=== PATIENT | female | born 1935 | race Caucasian/White ===

== ENCOUNTER → 2018-06-13 13:11 | Outpatient (CLI) | payer MEDICARE, OTHER, SELFPAY | PROVIDERS: Family Provider Family Medicine; PCP Family Medicine; Visit Provider Family Medicine | DX: M81.0 Age-related osteoporosis without current pathological fracture (principal); Z78.0 Asymptomatic menopausal state; E07.9 Disorder of thyroid, unspecified; Z85.3 Personal history of malignant neoplasm of breast; Z85.118 Personal history of other malignant neoplasm of bronchus and lung; Z90.722 Acquired absence of ovaries, bilateral | CPT/HCPCS: 77080 ==

== ENCOUNTER → 2018-08-18 14:24 | Outpatient (CLI) | payer MEDICARE, OTHER, SELFPAY ==
--- NOTE | 2018-08-18 | DI.US.S_ITS ---
PROCEDURE: US ARTERIAL DUPLEX LE BI INDICATIONS: CLAUDICATION BILATERAL/SMOKER TECHNIQUE: Color and pulse Doppler interrogation was performed of both lower extremity arterial systems, with image documentation. COMPARISON: None. FINDINGS: Right lower extremity: Common femoral artery: 50 cm/sec, with monophasic flow. Deep femoral artery: 60 cm/sec, with biphasic flow. Proximal superficial femoral artery: 66 cm/sec, with monophasic flow. Mid superficial femoral artery: 35 cm/sec, with monophasic flow. Distal superficial femoral artery: 20 cm/sec, with monophasic flow. Popliteal artery: 42 cm/sec, with monophasic flow. Posterior tibial artery: 14 cm/sec, with monophasic flow. Anterior tibial artery/dorsalis pedis: 43 cm/sec, with biphasic flow. Costa-scale imaging description: Atherosclerotic irregularity is seen. Left lower extremity: Common femoral artery: 57 cm/sec, with triphasic flow. Deep femoral artery: 44 cm/sec, with biphasic flow. The superficial femoral artery is occluded. Popliteal artery: Reconstitution of flow, with a flow velocity 37 cm/sec, with monophasic flow. Posterior tibial artery: Occluded. Anterior tibial artery/dorsalis pedis: 26 cm/sec, with monophasic flow. Costa-scale imaging description: Atherosclerotic changes are seen. 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 Monophasic flow is seen within the right common femoral artery, which is suggestive of an inflow stenosis. Atherosclerotic changes are seen throughout. Dictated by: Jeff Briseno M.D. on 08/18/2018 at 16:39 Approved by: Jeff Briseno M.D. on 08/18/2018 at 16:42
== END ==
PROVIDERS: PCP Family Medicine; Visit Provider Family Medicine
DX: I70.213 Atherosclerosis of native arteries of extremities with intermittent claudication, bilateral legs (principal); F17.210 Nicotine dependence, cigarettes, uncomplicated
CPT/HCPCS: 93925

== ENCOUNTER 2018-10-13 14:57 | Emergency (ER) | payer MEDICARE, OTHER, SELFPAY ==
[2018-10-13 15:01] VITALS: BP 151/80; PULSE 95; RESP 18; TEMP 36.8; O2SAT 96; BMI 24.2
--- NOTE | 2018-10-13 15:11 | DI.RAD.S_ITS ---
PROCEDURE: XR WRIST RT MIN 3V INDICATIONS: fall onto right hand TECHNIQUE: 4 views of the wrist were acquired. COMPARISON: None. 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 There is chronic appearing collapse of the trapezius. There is a minimally displaced fracture through the distal radius which extends into the joint space. Scaphoid view: The scaphoid is intact. Soft tissues: There is elevation of the pronator fat-pad consistent with joint effusion. IMPRESSION: 1. Minimally displaced intra-articular distal radial fracture. 2. 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 Dictated by: Lizbeth Roberts M.D. on 10/13/2018 at 15:33 Approved by: Lizbeth Roberts M.D. on 10/13/2018 at 15:35
--- NOTE | 2018-10-13 16:58 | DI.CT.S_ITS ---
PROCEDURE: CT HEAD/BRAIN WO CON INDICATIONS: fall, hit head Saturday, positive LOC TECHNIQUE: Noncontrast 4.5 mm thick angled axial sections acquired from the foramen magnum to the vertex, with coronal and sagittal reformats. For radiation dose reduction, the following was used: automated exposure control, adjustment of mA and/or kV according to patient size. COMPARISON: [facility], MR, BRAIN WITH AND WITHOUT CONTRAS, 04/30/2007, 13:17. FINDINGS: Image quality: Excellent. CSF spaces: Basal cisterns are patent. No extra-axial fluid collections. The ventricles are symmetric in size and shape. Brain: No intracranial bleeds or masses. There is cerebral volume loss for age, with resultant ventricular and sulcal prominence. There are periventricular and deep white matter chronic small vessel ischemic changes. There is intracranial internal carotid artery atherosclerosis. Skull and face: Calvarium and visualized facial bones appear intact, without suspicious lesions. Sinuses: Mucosal thickening is seen within the inferior maxillary sinuses. Visualized sinuses and mastoids are otherwise clear. IMPRESSION: Unremarkable intracranial study for age. No acute intracranial hemorrhage. Note is made of age-appropriate brain parenchymal volume loss and chronic small vessel ischemic changes. Dictated by: Jeff Briseno M.D. on 10/13/2018 at 16:18 Approved by: Jeff Briseno M.D. on 10/13/2018 at 16:20
--- NOTE | 2018-10-13 17:01 | ED.TRAUMA ---
HPI - Trauma General Chief Complaint: Extremity Injury, Upper Stated Complaint: RIGHT ARM INJURY SWELLING Time Seen by Provider: 10/13/18 16:36 Source: patient and other (friends) Mode of arrival: ambulatory Limitations: no limitations History of Present Illness HPI narrative: This an 83-year-old female comes in with complaint of right wrist pain. Patient states that she fell on Saturday she states she was in her garage she got tangled up in cords while she was trying to vacuum out her car and fell. Um she has had continued pain Um as well as significant bruising on that arm. She denies any numbness, tingling, weakness. She states she had trouble sleeping last night. She was in touch with her physician who called in a prescription for Tylenol No. 3 but she was unable to pick it up over the weekend. She lives alone and has been able to handle her home activities without major intervention. She is accompanied by 2 good friends from [place] that help her with daily activities as needed. Patient does not recall her fall, she is unsure how long she had a loss of consciousness. She cannot even tell me if she remembers falling. She denies any neck pain, she denies any back pain. She denies any chest pain or shortness of breath. No nausea, no vomiting no dizziness or similar symptoms. She has some chronic urinary incontinence. She is not having any fecal incontinence. She denies any other trauma or injuries. She denies taking any aspirin or other blood thinners daily. Related Data Home Medications Medication Instructions Recorded Confirmed allopurinol 100 mg PO BID #0 04/14/13 10/13/18 atenolol 50 mg PO DAILY #0 04/14/13 10/13/18 cetirizine 10 mg PO PRN PRN #0 04/14/13 10/13/18 furosemide 40 mg PO DAILY #0 04/14/13 10/13/18 simvastatin [Zocor] 40 mg PO BEDTIME #0 04/14/13 10/13/18 telmisartan [Micardis] 40 mg PO DAILY #0 04/14/13 10/13/18 acetaminophen-codeine 1 tab PO Q6H PRN 10/13/18 10/13/18 alendronate 70 mg PO QWEEK 10/13/18 10/13/18 diazepam 5 mg PO BID 10/13/18 10/13/18 levothyroxine [Synthroid] 112 mcg PO DAILY 10/13/18 10/13/18 Allergies Allergy/AdvReac Type Severity Reaction Status Date / Time aspirin Allergy Unknown Verified 10/13/18 15:09 citalopram [From CELEXA] Allergy Unknown UNK Verified 10/13/18 15:09 influenza virus vaccine, Allergy Unknown Verified 10/13/18 15:09 specific [influenza virus vacc,specific] meperidine Allergy Unknown Verified 10/13/18 15:09 penicillin G Allergy Unknown Verified 10/13/18 15:09 Sulfa (Sulfonamide Allergy Unknown Verified 10/13/18 15:09 Antibiotics) Cephalosporins AdvReac Intermediate stomach Verified 10/13/18 15:09 [CEPHALOSPORINS] pains doxycycline [DOXYCYCLINE] AdvReac Intermediate stomach Verified 10/13/18 15:09 pains Influenza Virus Vaccines AdvReac Intermediate nausea, Verified 10/13/18 15:09 [INFLUENZA VIRUS VACCINES] vomiting fluticasone [From FLONASE] AdvReac Mild sores in Verified 10/13/18 15:09 nose ZOMAX Allergy Unknown Uncoded 01/08/18 12:03 Review of Systems Review of Systems ROS Unobtainable: All systems reviewed & are unremarkable except as noted in HPI and below Constitutional Denies chills, Denies fever(s), Denies frequent falls, Denies headache(s), Denies lethargy, Denies weakness and Reports other (Loss of conscious) Eyes Denies blurry vision ENT Ears, Nose, Mouth, and Throat: Denies vertigo, Denies dizziness, Denies headache(s), Denies neck pain and Denies other (Abrasions, bruises or scalp injury) Cardiovascular Denies chest pain, Denies diaphoresis, Reports syncope (vs. LOC from fall? ), Denies edema, Denies irregular heart rhythm, Denies lightheadedness, Denies palpitations, Denies dyspnea, Denies dyspnea on exertion and Denies orthopnea Respiratory Denies change in phlegm color, Denies chest congestion, Denies cough, Denies pain on inspiration, Denies dyspnea, Denies dyspnea on exertion, Denies stridor and Denies wheezing Gastrointestinal Gastrointestinal: Denies abdominal pain, Denies change in bowel habits, Denies diarrhea, Denies nausea and Denies vomiting Genitourinary Reports urinary incontinence (chronic) Musculoskeletal Reports as per HPI, Denies abnormal gait, Denies back pain, Reports myalgias (improving), Denies deformity, Reports arthralgias (right wrist), Reports joint swelling, Reports limited range of motion, Denies muscle weakness, Denies neck pain, Denies numbness and Denies tingling Integumentary/Breasts Reports unusual bruising (right forearm) Neurologic Denies abnormal movements, Denies abnormal speech, Denies abnormal gait, Denies confusion, Denies vertigo, Denies dizziness, Reports syncope (vs. LOC from fall? ), Denies frequent falls, Denies headache(s), Denies focal weakness, Denies numbness, Denies sensory deficit, Denies tingling and Denies weakness Psychiatric Denies confusion Endocrine Denies palpitations Allergic/Immunologic Denies wheezing [facility] Medical History Dyslipidemia (Acute) Hypertension (Acute) Hypothyroid (Acute) Social History Smoking Status: Current every day smoker Exam Narrative Exam Narrative: GEN: Patient appears in mild distress. HEAD: No evidence of trauma, no raccoon/Hightower sign. NECK: Nontender, painless range of motion, trachea midline 9- Nexus criteria, there is no midline tenderness, distracting injury, altered mental status, neuro deficit, recent EtOH. EYES: PERRLA, EOMI ENT: External inspection normal, trachea is midline, TM's are normal no hemotypanum, Nares are clear, no septal hematoma, no dental or oral injury, airway is normal and with normal occlusion, No bony tenderness RESP: Chest is nontender and has symmetric movement, no ecchymosis, breath sounds are normal no crackles, wheezes or rales CVS: Heart sounds are normal, no murmur noted, No JVD. ABG/GI: Nontender, soft, normal bowel sounds, no distention, no organomegaly, pelvic rock is negative NEURO: Oriented AOx3, neuro is grossly intact, sensation and motor is normal all 4 extremities moving, cranial nerves II through XII are intact, GCS is 15 PSYCH: Normal mood and affect SKIN: Intact, warm and dry, no crepitus and without decubitus. Patient has bruising of the distal forearm that appears to be extending towards the elbow about long-term down the forearm. No hematoma noted. There is no wounds or lacerations BACK: No CVA tenderness, no vertebral tenderness, no step-off's, no crepitus EXT: Atraumatic, patient's right wrist is tender to palpation, she has full range of motion of her fingers. She does have an injury to her left distal thumb although the nail appears to be intact at this time there is cap refill less than 2 sec in all 5 fingers. She has 2+ radial pulse. hips are nontender, no pedal edema, normal color and temperature, normal range of motion of extremities with normal tendon exam, 2+ pulses in all four extremities Initial Vital Signs Initial Vital Signs: Vital Signs Temperature 98.2 F 10/13/18 15:01 Pulse Rate 95 H 10/13/18 15:01 Respiratory Rate 18 10/13/18 15:01 Blood Pressure 151/80 H 10/13/18 15:01 Pulse Oximetry 96 10/13/18 15:01 Course Orders Ordered: ED Orders 10/13/18 15:11 XR wrist RT min 3V Stat 10/13/18 16:58 CT head/brain wo con Stat Vital Signs - 8 hr 10/13/18 15:01 10/13/18 17:26 Temperature 98.2 F Pulse Rate 95 H 90 Respiratory Rate 18 17 Blood Pressure 151/80 H Blood Pressure [Left Arm] 128/81 Pulse Oximetry 96 97 MDM - Trauma Imaging Data wrist xray: Radiologist's impression: [address] [address] XRay Report Signed Patient: Pau Bautista MR#: [id number] : 1935 Acct:[id number] Age/Sex: 83 / F Date of Service: 10/13/18 Loc: ED Accession Number: [id number] Procedure: XR wrist RT min 3V Ordering Provider: Janell Mcclure D.O. PROCEDURE: XR WRIST RT MIN 3V INDICATIONS: fall onto right hand TECHNIQUE: 4 views of the wrist were acquired. COMPARISON: None. 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 There is chronic appearing collapse of the trapezius. There is a minimally displaced fracture through the distal radius which extends into the joint space. Scaphoid view: The scaphoid is intact. Soft tissues: There is elevation of the pronator fat-pad consistent with joint effusion. IMPRESSION: 1. Minimally displaced intra-articular distal radial fracture. 2. 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 Dictated by: Lizbeth Roberts M.D. on 10/13/2018 at 15:33 Approved by: Lizbeth Roberts M.D. on 10/13/2018 at 15:35 CT scan - head: Radiologist's impression: [address] [address] [address] Scan Report Signed Patient: Pau Bautista MR#: [id number] : 1935 Acct:[id number] Age/Sex: 83 / F Date of Service: 10/13/18 Loc: ED Accession Number: [id number] Procedure: CT head/brain wo con Ordering Provider: Janell Mcclure D.O. PROCEDURE: CT HEAD/BRAIN WO CON INDICATIONS: fall, hit head Saturday, positive LOC TECHNIQUE: Noncontrast 4.5 mm thick angled axial sections acquired from the foramen magnum to the vertex, with coronal and sagittal reformats. For radiation dose reduction, the following was used: automated exposure control, adjustment of mA and/or kV according to patient size. COMPARISON: [facility], , BRAIN WITH AND WITHOUT CONTRAS, 04/30/2007, 13:17. FINDINGS: Image quality: Excellent. CSF spaces: Basal cisterns are patent. No extra-axial fluid collections. The ventricles are symmetric in size and shape. Brain: No intracranial bleeds or masses. There is cerebral volume loss for age, with resultant ventricular and sulcal prominence. There are periventricular and deep white matter chronic small vessel ischemic changes. There is intracranial internal carotid artery atherosclerosis. Skull and face: Calvarium and visualized facial bones appear intact, without suspicious lesions. Sinuses: Mucosal thickening is seen within the inferior maxillary sinuses. Visualized sinuses and mastoids are otherwise clear. IMPRESSION: Unremarkable intracranial study for age. No acute intracranial hemorrhage. Note is made of age-appropriate brain parenchymal volume loss and chronic small vessel ischemic changes. Dictated by: Jeff Briseno M.D. on 10/13/2018 at 16:18 Approved by: Jeff Briseno M.D. on 10/13/2018 at 16:20 [facility] Narrative Medical decision making narrative: Patient's left wrist shows signs of fracture. This was discussed with Dr. Broussard who recommends CT of the wrist if patient is willing to do it today. I had quite a bit of difficulty convincing her to get a head CT even with her fall on Saturday with either a loss of consciousness versus syncope or other cause. Patient had a period of time that was missing that she is unable to account for. So patient deferred CT of her wrist today but we did discuss that she can get it out as an outpatient through Dr. Broussard. She also deferred any further workup such as cardiac enzymes, low other lab work, EKG or chest x-ray. We did discuss that I cannot rule out other causes for her fall. Although it does sound consistent that it was a fall. Her friends were at bedside with her states that she has been and has not had any other changes to her mentation. Patient appears alert or and competent and able to make decisions not do further workup. She is 4 days from her initial injury. We were able to convince her to do a head CT which did not show any acute changes. Patient is placed in a sugar-tong splint, checked she appears neurovascularly intact afterwards. We discussed at length reasons to return, need for follow-up and further evaluation. We also discussed she can return here at any time if she is having difficulties or is unsure what to do. Discharge Plan Departure Patient Disposition: Home Clinical Impression: Distal radial fracture Discharge Date/Time: 10/13/18 18:19 Interventions: ED Discharge Assessment Last Done: 10/13/18 18:19 Instructions: DI for Wrist Fracture Activity Restrictions/Additional Instructions: Follow-up with Dr. Broussard with Orthopedic surgery in the next 3-5 days for recheck. Call for an appointment. Your Head CT does not show any bleed, we did not do it the rest of the evaluation including EKG, chest x-ray or lab work so I cannot rule out any other causes such as cardiac, pulmonary, blood clots or other causes that may have caused your symptoms. You may take pain medication as prescribed this medication can make you sleepy do not drive, perform hazards activities or make any major decisions while taking it. Splint Care: Keep splint clean and dry. Elevated affected body part to decrease swelling. OK to use ice pack on the affected body part. Use for 15-20 minutes each time, for 5-6x per day. If you develop worsening pain, numbness, tingling, discoloration of the affected body part, loosen the splint by loosening the YAZMIN wrap, and either see your doctor for an urgent re-assessment, or return to the Emergency Department. Return to the Emergency Department for any new or worsening symptoms, sudden severe headaches, difficulty with speech, new weakness, numbness, altered mental status or confusion, persistent vomiting, new chest pain and/or shortness of breath. Prescriptions: No Action furosemide 40 MG tablet 40 mg PO DAILY Qty: 0 RF: 0 cetirizine 10 MG tablet 10 mg PO PRN PRN (Reason: Allergy Symptoms) Qty: 0 RF: 0 allopurinol 100 MG tablet 100 mg PO BID Qty: 0 RF: 0 simvastatin [Zocor] 40 MG tablet 40 mg PO BEDTIME Qty: 0 RF: 0 telmisartan [Micardis] 40 MG tablet 40 mg PO DAILY Qty: 0 RF: 0 atenolol 50 MG tablet 50 mg PO DAILY Qty: 0 RF: 0 alendronate 70 mg tablet 70 mg PO QWEEK RF: 0 acetaminophen-codeine 300-30 mg tablet 1 tab PO Q6H PRN (Reason: pain) RF: 0 diazepam 5 mg tablet 5 mg PO BID RF: 0 levothyroxine [Synthroid] 112 mcg tablet 112 mcg PO DAILY RF: 0 Referrals: Chinyere Hill DO [Primary Care Provider] - Dana Broussard MD [Physician] -
--- NOTE | 2018-10-13 17:06 | ED_ITS ---
HPI - Trauma General Chief Complaint: Extremity Injury, Upper Stated Complaint: RIGHT ARM INJURY SWELLING Time Seen by Provider: 10/13/18 16:36 Source: patient and other (friends) Mode of arrival: ambulatory Limitations: no limitations History of Present Illness HPI narrative: This an 83-year-old female comes in with complaint of right wrist pain. Patient states that she fell on Saturday she states she was in her garage she got tangled up in cords while she was trying to vacuum out her car and fell. Um she has had continued pain Um as well as significant bruising on that arm. She denies any numbness, tingling, weakness. She states she had trouble sleeping last night. She was in touch with her physician who called in a prescription for Tylenol No. 3 but she was unable to pick it up over the weekend. She lives alone and has been able to handle her home activities without major intervention. She is accompanied by 2 good friends from [place] that help her with daily activities as needed. Patient does not recall her fall, she is unsure how long she had a loss of consciousness. She cannot even tell me if she remembers falling. She denies any neck pain, she denies any back pain. She denies any chest pain or shortness of breath. No nausea, no vomiting no dizziness or similar symptoms. She has some chronic urinary incontinence. She is not having any fecal incontinence. She denies any other trauma or injuries. She denies taking any aspirin or other blood thinners daily. Related Data Home Medications Medication Instructions Recorded Confirmed allopurinol 100 mg PO BID #0 04/14/13 10/13/18 atenolol 50 mg PO DAILY #0 04/14/13 10/13/18 cetirizine 10 mg PO PRN PRN #0 04/14/13 10/13/18 furosemide 40 mg PO DAILY #0 04/14/13 10/13/18 simvastatin [Zocor] 40 mg PO BEDTIME #0 04/14/13 10/13/18 telmisartan [Micardis] 40 mg PO DAILY #0 04/14/13 10/13/18 acetaminophen-codeine 1 tab PO Q6H PRN 10/13/18 10/13/18 alendronate 70 mg PO QWEEK 10/13/18 10/13/18 diazepam 5 mg PO BID 10/13/18 10/13/18 levothyroxine [Synthroid] 112 mcg PO DAILY 10/13/18 10/13/18 Allergies Allergy/AdvReac Type Severity Reaction Status Date / Time aspirin Allergy Unknown Verified 10/13/18 15:09 citalopram [From CELEXA] Allergy Unknown UNK Verified 10/13/18 15:09 influenza virus vaccine, Allergy Unknown Verified 10/13/18 15:09 specific [influenza virus vacc,specific] meperidine Allergy Unknown Verified 10/13/18 15:09 penicillin G Allergy Unknown Verified 10/13/18 15:09 Sulfa (Sulfonamide Allergy Unknown Verified 10/13/18 15:09 Antibiotics) Cephalosporins AdvReac Intermediate stomach Verified 10/13/18 15:09 [CEPHALOSPORINS] pains doxycycline [DOXYCYCLINE] AdvReac Intermediate stomach Verified 10/13/18 15:09 pains Influenza Virus Vaccines AdvReac Intermediate nausea, Verified 10/13/18 15:09 [INFLUENZA VIRUS VACCINES] vomiting fluticasone [From FLONASE] AdvReac Mild sores in Verified 10/13/18 15:09 nose ZOMAX Allergy Unknown Uncoded 01/08/18 12:03 Review of Systems Review of Systems ROS Unobtainable: All systems reviewed & are unremarkable except as noted in HPI and below Constitutional Denies chills, Denies fever(s), Denies frequent falls, Denies headache(s), Denies lethargy, Denies weakness and Reports other (Loss of conscious) Eyes Denies blurry vision ENT Ears, Nose, Mouth, and Throat: Denies vertigo, Denies dizziness, Denies headache (s), Denies neck pain and Denies other (Abrasions, bruises or scalp injury) Cardiovascular Denies chest pain, Denies diaphoresis, Reports syncope (vs. LOC from fall? ), Denies edema, Denies irregular heart rhythm, Denies lightheadedness, Denies palpitations, Denies dyspnea, Denies dyspnea on exertion and Denies orthopnea Respiratory Denies change in phlegm color, Denies chest congestion, Denies cough, Denies pain on inspiration, Denies dyspnea, Denies dyspnea on exertion, Denies stridor and Denies wheezing Gastrointestinal Gastrointestinal: Denies abdominal pain, Denies change in bowel habits, Denies diarrhea, Denies nausea and Denies vomiting Genitourinary Reports urinary incontinence (chronic) Musculoskeletal Reports as per HPI, Denies abnormal gait, Denies back pain, Reports myalgias ( improving), Denies deformity, Reports arthralgias (right wrist), Reports joint swelling, Reports limited range of motion, Denies muscle weakness, Denies neck pain, Denies numbness and Denies tingling Integumentary/Breasts Reports unusual bruising (right forearm) Neurologic Denies abnormal movements, Denies abnormal speech, Denies abnormal gait, Denies confusion, Denies vertigo, Denies dizziness, Reports syncope (vs. LOC from fall ? ), Denies frequent falls, Denies headache(s), Denies focal weakness, Denies numbness, Denies sensory deficit, Denies tingling and Denies weakness Psychiatric Denies confusion Endocrine Denies palpitations Allergic/Immunologic Denies wheezing [facility] Medical History Dyslipidemia (Acute) Hypertension (Acute) Hypothyroid (Acute) Social History Smoking Status: Current every day smoker Exam Narrative Exam Narrative: GEN: Patient appears in mild distress. HEAD: No evidence of trauma, no raccoon/Hightower sign. NECK: Nontender, painless range of motion, trachea midline 9- Nexus criteria, there is no midline tenderness, distracting injury, altered mental status, neuro deficit, recent EtOH. EYES: PERRLA, EOMI ENT: External inspection normal, trachea is midline, TM's are normal no hemotypanum, Nares are clear, no septal hematoma, no dental or oral injury, airway is normal and with normal occlusion, No bony tenderness RESP: Chest is nontender and has symmetric movement, no ecchymosis, breath sounds are normal no crackles, wheezes or rales CVS: Heart sounds are normal, no murmur noted, No JVD. ABG/GI: Nontender, soft, normal bowel sounds, no distention, no organomegaly, pelvic rock is negative NEURO: Oriented AOx3, neuro is grossly intact, sensation and motor is normal all 4 extremities moving, cranial nerves II through XII are intact, GCS is 15 PSYCH: Normal mood and affect SKIN: Intact, warm and dry, no crepitus and without decubitus. Patient has bruising of the distal forearm that appears to be extending towards the elbow about residential down the forearm. No hematoma noted. There is no wounds or lacerations BACK: No CVA tenderness, no vertebral tenderness, no step-off's, no crepitus EXT: Atraumatic, patient's right wrist is tender to palpation, she has full range of motion of her fingers. She does have an injury to her left distal thumb although the nail appears to be intact at this time there is cap refill less than 2 sec in all 5 fingers. She has 2+ radial pulse. hips are nontender , no pedal edema, normal color and temperature, normal range of motion of extremities with normal tendon exam, 2+ pulses in all four extremities Initial Vital Signs Initial Vital Signs: Vital Signs Temperature 98.2 F 10/13/18 15:01 Pulse Rate 95 H 10/13/18 15:01 Respiratory Rate 18 10/13/18 15:01 Blood Pressure 151/80 H 10/13/18 15:01 Pulse Oximetry 96 10/13/18 15:01 Course Orders Ordered: ED Orders 10/13/18 15:11 XR wrist RT min 3V Stat 10/13/18 16:58 CT head/brain wo con Stat Vital Signs - 8 hr 10/13/18 15:01 10/13/18 17:26 Temperature 98.2 F Pulse Rate 95 H 90 Respiratory Rate 18 17 Blood Pressure 151/80 H Blood Pressure [Left Arm] 128/81 Pulse Oximetry 96 97 MDM - Trauma Imaging Data wrist xray: Radiologist's impression: [address] [address] XRay Report Signed Patient: Pau Bautista MR#: [id number] : 1935 Acct:[id number] Age/Sex: 83 / F Date of Service: 10/13/18 Loc: ED Accession Number: [id number] Procedure: XR wrist RT min 3V Ordering Provider: Janell Mcclure D.O. PROCEDURE: XR WRIST RT MIN 3V INDICATIONS: fall onto right hand TECHNIQUE: 4 views of the wrist were acquired. COMPARISON: None. 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 There is chronic appearing collapse of the trapezius. There is a minimally displaced fracture through the distal radius which extends into the joint space. Scaphoid view: The scaphoid is intact. Soft tissues: There is elevation of the pronator fat-pad consistent with joint effusion. IMPRESSION: 1. Minimally displaced intra-articular distal radial fracture. 2. 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 Dictated by: Lizbeth Roberts M.D. on 10/13/2018 at 15:33 Approved by: Lizbeth Roberts M.D. on 10/13/2018 at 15:35 CT scan - head: Radiologist's impression: [address] [address] [address] Scan Report Signed Patient: Pau Bautista MR#: [id number] : 1935 Acct:[id number] Age/Sex: 83 / F Date of Service: 10/13/18 Loc: ED Accession Number: [id number] Procedure: CT head/brain wo con Ordering Provider: Janell Mcclure D.O. PROCEDURE: CT HEAD/BRAIN WO CON INDICATIONS: fall, hit head Saturday, positive LOC TECHNIQUE: Noncontrast 4.5 mm thick angled axial sections acquired from the foramen magnum to the vertex, with coronal and sagittal reformats. For radiation dose reduction, the following was used: automated exposure control, adjustment of mA and/or kV according to patient size. COMPARISON: [facility], , BRAIN WITH AND WITHOUT CONTRAS, 04/30/2007, 13: 17. FINDINGS: Image quality: Excellent. CSF spaces: Basal cisterns are patent. No extra-axial fluid collections. The ventricles are symmetric in size and shape. Brain: No intracranial bleeds or masses. There is cerebral volume loss for age , with resultant ventricular and sulcal prominence. There are periventricular and deep white matter chronic small vessel ischemic changes. There is intracranial internal carotid artery atherosclerosis. Skull and face: Calvarium and visualized facial bones appear intact, without suspicious lesions. Sinuses: Mucosal thickening is seen within the inferior maxillary sinuses. Visualized sinuses and mastoids are otherwise clear. IMPRESSION: Unremarkable intracranial study for age. No acute intracranial hemorrhage. Note is made of age-appropriate brain parenchymal volume loss and chronic small vessel ischemic changes. Dictated by: Jeff Briseno M.D. on 10/13/2018 at 16:18 Approved by: Jeff Briseno M.D. on 10/13/2018 at 16:20 [facility] Narrative Medical decision making narrative: Patient's left wrist shows signs of fracture. This was discussed with Dr. Broussard who recommends CT of the wrist if patient is willing to do it today. I had quite a bit of difficulty convincing her to get a head CT even with her fall on Saturday with either a loss of consciousness versus syncope or other cause. Patient had a period of time that was missing that she is unable to account for. So patient deferred CT of her wrist today but we did discuss that she can get it out as an outpatient through Dr. Broussard. She also deferred any further workup such as cardiac enzymes, low other lab work, EKG or chest x-ray. We did discuss that I cannot rule out other causes for her fall. Although it does sound consistent that it was a fall. Her friends were at bedside with her states that she has been and has not had any other changes to her mentation. Patient appears alert or and competent and able to make decisions not do further workup. She is 4 days from her initial injury. We were able to convince her to do a head CT which did not show any acute changes. Patient is placed in a sugar-tong splint, checked she appears neurovascularly intact afterwards. We discussed at length reasons to return, need for follow-up and further evaluation. We also discussed she can return here at any time if she is having difficulties or is unsure what to do. Discharge Plan Departure Patient Disposition: Home Clinical Impression: Distal radial fracture Discharge Date/Time: 10/13/18 18:19 Interventions: ED Discharge Assessment Last Done: 10/13/18 18:19 Instructions: DI for Wrist Fracture Activity Restrictions/Additional Instructions: Follow-up with Dr. Broussard with Orthopedic surgery in the next 3-5 days for recheck. Call for an appointment. Your Head CT does not show any bleed, we did not do it the rest of the evaluation including EKG, chest x-ray or lab work so I cannot rule out any other causes such as cardiac, pulmonary, blood clots or other causes that may have caused your symptoms. You may take pain medication as prescribed this medication can make you sleepy do not drive, perform hazards activities or make any major decisions while taking it. Splint Care: Keep splint clean and dry. Elevated affected body part to decrease swelling. OK to use ice pack on the affected body part. Use for 15-20 minutes each time, for 5-6x per day. If you develop worsening pain, numbness, tingling, discoloration of the affected body part, loosen the splint by loosening the YAZMIN wrap, and either see your doctor for an urgent re-assessment, or return to the Emergency Department. Return to the Emergency Department for any new or worsening symptoms, sudden severe headaches, difficulty with speech, new weakness, numbness, altered mental status or confusion, persistent vomiting, new chest pain and/or shortness of breath. Prescriptions: No Action furosemide 40 MG tablet 40 mg PO DAILY Qty: 0 RF: 0 cetirizine 10 MG tablet 10 mg PO PRN PRN (Reason: Allergy Symptoms) Qty: 0 RF: 0 allopurinol 100 MG tablet 100 mg PO BID Qty: 0 RF: 0 simvastatin [Zocor] 40 MG tablet 40 mg PO BEDTIME Qty: 0 RF: 0 telmisartan [Micardis] 40 MG tablet 40 mg PO DAILY Qty: 0 RF: 0 atenolol 50 MG tablet 50 mg PO DAILY Qty: 0 RF: 0 alendronate 70 mg tablet 70 mg PO QWEEK RF: 0 acetaminophen-codeine 300-30 mg tablet 1 tab PO Q6H PRN (Reason: pain) RF: 0 diazepam 5 mg tablet 5 mg PO BID RF: 0 levothyroxine [Synthroid] 112 mcg tablet 112 mcg PO DAILY RF: 0 Referrals: Chinyere Hill DO [Primary Care Provider] - Dana Broussard MD [Physician] -
[2018-10-13 17:26] VITALS: BP 128/81; PULSE 90; RESP 17; O2SAT 97
== END 2018-10-13 18:19 | disposition home or self-care (01) ==
PROVIDERS: Emergency Provider Emergency Medicine; PCP Family Medicine
DX: R55 Syncope and collapse (principal); S52.509A Unspecified fracture of the lower end of unspecified radius, initial encounter for closed fracture; S06.9X9A Unspecified intracranial injury with loss of consciousness of unspecified duration, initial encounter; W19.XXXA Unspecified fall, initial encounter
CPT/HCPCS: 29105; 70450; 73110; 99283

== ENCOUNTER → 2019-02-05 10:38 | Outpatient (CLI) | payer MEDICARE, OTHER, SELFPAY ==
[2019-02-05 12:08] LABS: Add Manual Diff / Slide Review NO; Basophils Absolute Auto 100 /uL (0-100); Basophils Percent Auto 0.8 % (0-2); Eosinophils Absolute Auto 100 /uL (0-450); Eosinophils Percent Auto 1.5 % (2-4); Hematocrit 42.2 % (36-46); Hemoglobin 13.6 g/dL (12.0-16.0); Lymphocytes Absolute Auto 1300 /uL (1100-4500); Lymphocytes Percent Auto 20.4 % (25-40); Mean Corpuscular HGB Conc 32.1 % (30-36); Mean Corpuscular Hemoglobin 30.3 PG (26-34); Mean Corpuscular Volume 94.3 fL (80-100); Monocytes Absolute Auto 500 /uL (0-900); Neutrophils Absolute Auto 4600 /uL (1500-7000); Neutrophils Percent Auto 70.3 % (50-75); Platelet Count 158 X10^3/uL (150-400); Red Blood Cell Count 4.47 X10^6/uL (4.0-5.2); Red Cell Distribution Width 15.8 % (11.6-14.8); White Blood Cell Count 6.5 X10^3/uL (4.5-11.0)
[2019-02-05 12:40] LABS: Alanine Aminotransferase 9 IU/L (9-52); Albumin 4.1 g/dL (3.5-5.0); Albumin Globulin Ratio 1.3 (1.0-2.8); Alkaline Phosphatase 81 U/L (38-126); Aspartate Aminotransferase 18 IU/L (14-36); BUN Creatinine Ratio 26.4 (6-22); Bilirubin Total 0.5 mg/dL (0.2-1.3); Blood Urea Nitrogen 29 mg/dL (7-17); Calcium 10.5 mg/dL (8.4-10.2); Carbon Dioxide 26 mmol/L (22-32); Chloride 104 mmol/L (98-107); Cholesterol 167 mg/dL (140-199); Estimated Glomerular Filt Rate 47.4 mL/min (>60); Globulin 3.2 g/dL (1.7-4.1); Glucose 91 mg/dL (80-110); HDL Cholesterol 46 mg/dL (40-60); HEMOLYSIS < 15 (0-50); LDL Cholesterol Calculated 73 mg/dL (<100); Potassium 4.9 mmol/L (3.4-5.1); Sodium 139 mmol/L (137-145); Total Protein 7.3 g/dL (6.3-8.2); Triglycerides 238 mg/dL (35-150)
[2019-02-05 12:57] LABS: Free T3, Triiodothyronine Free 3.23 pg/mL (2.77-5.27); Free T4, Direct Thyroxine 1.75 ng/dL (0.78-2.19)
== END ==
PROVIDERS: PCP Family Medicine; Visit Provider Family Medicine
DX: E11.9 Type 2 diabetes mellitus without complications (principal); E89.0 Postprocedural hypothyroidism; R31.9 Hematuria, unspecified; Z85.528 Personal history of other malignant neoplasm of kidney
CPT/HCPCS: 36415; 80053; 80061; 83036; 84439; 84481; 85025

== ENCOUNTER → 2019-02-10 13:05 | Outpatient (CLI) | payer MEDICARE, OTHER, SELFPAY ==
--- NOTE | 2019-02-10 | DI.CT.S_ITS ---
PROCEDURE: CT ABDOMEN PELVIS WO/W CON INDICATIONS: Hematuria, unspecified TECHNIQUE: Optional 5 mm thick noncontrast images acquired from the diaphragm to the symphysis pubis. After the administration of intravenous contrast, 5 mm thick images acquired from the diaphragm to the symphysis pubis after a 10-minute delay. 2 mm thick coronal and sagittal reformats were then performed of the kidneys and ureters. For radiation dose reduction, the following was used: automated exposure control, adjustment of mA and/or kV according to patient size. COMPARISON: [facility], CT, CHEST/ABDOMEN WITHOUT CONTRAST, 12/18/2017, 12:30. FINDINGS: Image quality: Excellent. Lung bases: Sub-5 mm nodules in the left lung base and medial right lower lobe are unchanged since 11/28/17 in keeping with chronic granulomatous disease.. Urinary system: Slight enlargement of the inferior aspect of the right staghorn calculus since prior study otherwise grossly unchanged. Bilateral renal hilar vascular calcifications. bilateral sub-5 mm renal calculi are again noted. No hydronephrosis. No perinephric stranding. Multiple renal cysts are again redemonstrated, although hyperdense appearance of exophytic left renal lesion, with no interval change in size since the prior study (image 28 series 2), measuring 3.1 x 2.9 cm. Additional smaller hyperdense appearance of exophytic lesions in the left kidney on image 37 series 2, image 33 series 2 also unchanged. The ureters appear nondilated. Bladder grossly unremarkable. No bladder calculi seen. Other solid organs: Liver is normal in size and enhancement. Gallbladder negative. Intra-and extrahepatic bile ducts are again prominent although grossly unchanged appearance. Pancreas enhances normally. Spleen is normal in size and enhancement. Stable-appearing presumed left adrenal adenoma. Peritoneum and bowel: No evidence of bowel obstruction. No free fluid or free air. The rectum is unremarkable. Appendix is not clearly identified however no suspicious pericecal inflammatory changes are identified Nodes and vessels: No retroperitoneal or mesenteric adenopathy by size criteria. Scattered vascular calcifications seen in the aorta. Minimal 2.8 cm ectasia of the infrarenal abdominal aorta. Abdominal wall: No ventral hernias. Pelvis: No pathologic free pelvic fluid. No inguinal hernias or adenopathy. Bones: Diffuse osteopenia, multilevel spondylosis. No compression fracture seen. IMPRESSION: Redemonstration of bilateral nephrolithiasis, including large right staghorn calculus. Numerous bilateral renal cysts, some of which on the left demonstrating hyperdense appearance. No gross interval change. Continued long-term surveillance with ultrasound or CT recommended. No evidence of urinary obstruction. Mild aneurysmal dilatation of the infrarenal abdominal aorta, which could be monitored with ultrasound as clinically warranted. Dictated by: Oliver Pardo M.D. on 02/10/2019 at 14:44 Approved by: Oliver Pardo M.D. on 02/10/2019 at 14:56
== END ==
PROVIDERS: PCP Family Medicine; Visit Provider Family Medicine
DX: R31.9 Hematuria, unspecified (principal); N20.0 Calculus of kidney; N28.1 Cyst of kidney, acquired; I71.4 Abdominal aortic aneurysm, without rupture
CPT/HCPCS: 74178; Q9967

== ENCOUNTER → 2019-08-26 12:34 | Outpatient (CLI) | payer MEDICARE, OTHER, SELFPAY ==
--- NOTE | 2019-08-26 | DI.US.S_ITS ---
PROCEDURE: US ABD AORTA ANEURYSM SCREEN INDICATIONS: AAA SCREEN TECHNIQUE: Real time scanning was performed of the aorta and iliac arteries, with image documentation. COMPARISON: None. FINDINGS: Aorta: Proximal aortic diameter measures 2.3 cm. Mid-aorta measures 2.3 cm. Distal aortic diameter is mildly aneurysmal at 2.8 x 3.0 cm in maximal axial dimension and having a fusiform craniocaudad length of 4.0 cm. Iliac arteries: Right common iliac artery measures 0.9 cm. Left common iliac artery measures 0.9 cm. IMPRESSION: Distal abdominal aortic mild aneurysmal dilatation, no sign of dissection or aneurysm elsewhere. Dictated by: Shiv Mendes M.D. on 08/26/2019 at 14:50 Approved by: Shiv Mendes M.D. on 08/26/2019 at 14:51
== END ==
PROVIDERS: PCP Family Medicine; Visit Provider Family Medicine
DX: Z13.6 Encounter for screening for cardiovascular disorders (principal); I71.4 Abdominal aortic aneurysm, without rupture
CPT/HCPCS: 76706

== ENCOUNTER → 2019-11-12 12:42 | Outpatient (CLI) | payer MEDICARE, OTHER, SELFPAY ==
--- NOTE | 2019-11-12 13:05 | DI.CT.S_ITS ---
PROCEDURE: CT ABDOMEN PELVIS WO CON INDICATIONS: Right flank pain. Microhematuria TECHNIQUE: Noncontrast 5 mm thick sections acquired from the diaphragms to the symphysis. 5 mm coronal and sagittal reformats were then performed. For radiation dose reduction, the following was used: automated exposure control, adjustment of mA and/or kV according to patient size. COMPARISON: [facility], CT, ABDOMEN WITHOUT CONTRAST, 03/11/2017, 11:41. [facility], CT, CT ABDOMEN PELVIS WO/W CON, 02/10/2019, 13:29. FINDINGS: Image quality: Excellent. ABDOMEN: Lung bases: Lung bases are clear. Heart size is normal. Minimal pericardial effusion, as before. Solid organs: Liver is normal in size. Gallbladder is distended. No gallstones in the gallbladder identified. No gallbladder wall thickening. Pancreas is normal in contours. Spleen is normal in size. No adrenal nodules. Right kidney: The no significant hydronephrosis. Multiple cysts, some of which are high density. Right ureter: Nondilated. Left kidney: Small nonobstructing stones and vascular calcifications. Numerous cysts, some of which are high density. No hydronephrosis. Left ureter: No stone. Nondilated. Peritoneum and bowel: Unenhanced bowel loops demonstrate normal wall thickness and caliber. No free fluid or air. Nodes and vessels: No retroperitoneal or mesenteric adenopathy by size criteria. Mild aneurysmal dilatation of the infrarenal abdominal aorta, measuring 3.2 cm. Significant bilateral origin calcifications of the renal arteries. Probable bilateral iliac calcified stenotic disease. Miscellaneous: No ventral hernias. PELVIS: Genitourinary: Bladder wall thickness is normal. Miscellaneous: No inguinal hernias or adenopathy. Bones: No suspicious bony lesions. No vertebral body compression fractures. IMPRESSION: 1. Large right staghorn calculus. 2. Multiple nonobstructing left renal stones. 3. Numerous bilateral renal cysts, some of which are high density. Consider CT IVP to exclude solid masses. 4. Mild aneurysmal dilatation of the infrarenal abdominal aorta. 5. Suspect hemodynamically significant bilateral iliac artery stenoses. Dictated by: Jean Claude Sharma M.D. on 11/12/2019 at 17:13 Approved by: Jean Claude Sharma M.D. on 11/12/2019 at 17:20
== END ==
PROVIDERS: PCP Family Medicine; Referring Provider Family Medicine; Visit Provider Family Medicine
DX: R10.9 Unspecified abdominal pain (principal); R31.29 Other microscopic hematuria; N20.0 Calculus of kidney; N28.1 Cyst of kidney, acquired; I71.4 Abdominal aortic aneurysm, without rupture; I70.1 Atherosclerosis of renal artery
CPT/HCPCS: 74176

== ENCOUNTER → 2020-05-02 14:02 | Outpatient (ROUT) | payer SELFPAY ==
[2020-05-04 04:12] LABS: COVID19 Sendout Not Detected (Not Detected)
== END ==
PROVIDERS: PCP Family Medicine; Visit Provider Internal Medicine
DX: Z11.59 Encounter for screening for other viral diseases (principal)
CPT/HCPCS: 87635

== ENCOUNTER → 2020-08-04 10:32 | Outpatient (CLI) | payer MEDICARE, OTHER, SELFPAY ==
--- NOTE | 2020-08-04 | DI.RAD.S_ITS ---
PROCEDURE: XR KNEE RT 1TO2V INDICATIONS: PAIN TECHNIQUE: 2 views of the knee were acquired. COMPARISON: None. FINDINGS: Bones: No fractures or dislocations. No suspicious bony lesions. Severe tricompartment degenerative arthritis with bulky osteophytes and joint space loss. Soft tissues: No joint effusion. No suspicious soft tissue calcifications. IMPRESSION: Severe degenerative arthritis of the right knee. No evidence acute bony abnormality of the right knee. If clinical suspicion and/or symptoms persist, further assessment with repeat plain films, or advanced imaging (e.g., CT, MRI, or bone scan) may be helpful for further assessment. Dictated by: Jean Claude Sharma M.D. on 08/04/2020 at 11:00 Approved by: Jean Claude Sharma M.D. on 08/04/2020 at 11:00
== END ==
PROVIDERS: PCP Family Medicine; Referring Provider Nurse Practitioner; Visit Provider Nurse Practitioner
DX: M25.561 Pain in right knee (principal); M17.11 Unilateral primary osteoarthritis, right knee
CPT/HCPCS: 73560